=== PATIENT | male | born 1975 | race African-American/Black ===

== ENCOUNTER 2019-03-23 08:15 | Emergency (ER) | payer BC, OTHER ==
[~2019-03-23] VITALS: Ht 172.7 cm; Wt 75.7 kg
--- NOTE | 2019-03-23 08:30 | NUR ---
Patient ambulated with stable gait. Speech is clear, speaks in complete sentences. No acute neuro deficits. A/Ox3. Patient came for c/o cp / epigastric pain x1 wk. Respiratory even and unlabored, no cough, SOB, no use of accessory muscles. Reports chest pain non-radiating and localized in the sternal aspect, tingling sensation in upper extremities, all pulses palpable, cap refill <3 seconds. Denies any GI/ symptoms, no n/v/d or abd pain. Patient in bed at lowest position, sr upx2, call light within reach. Fall precautions implemented per protocol.
--- NOTE | 2019-03-23 08:33 | NUR ---
ER MD at bedside, evaluating patient.
[2019-03-23] MEDS ORDERED: MAG HYDROX/AL HYDROX/SIMETH 30 ML LIQUID UDC PO ONE (08:45)
[2019-03-23] MEDS ORDERED: LIDOCAINE VISCUS 2% 15 ML UDC MM ONE (08:45)
[2019-03-23] MEDS ORDERED: LIDOCAINE VISCUS 2% 15 ML UDC ONE (08:47)
[2019-03-23] MEDS ORDERED: MAG HYDROX/AL HYDROX/SIMETH 30 ML LIQUID UDC ONE (08:48)
[2019-03-23 08:54] LABS: BASOPHILS % (AUTO) 0.6 % (0.0-2.0); HEMOGLOBIN 13.7 g/dL (12.5-16.3); LYMPHOCYTES # (AUTO) 1.7 K/uL (20.0-40.0); LYMPHOCYTES % (AUTO) 36.5 % (20.5-51.5); MEAN CORPUSCULAR HGB CONC 33 g/dL (32.5-36.3); MEAN CORPUSCULAR VOLUME 79.6 fL (73.0-96.2); MONOCYTES # (AUTO) 0.3 K/uL (2.0-10.0); MONOCYTES % (AUTO) 6.6 % (0.0-11.0); NEUTROPHILS # (AUTO) 2.6 K/uL (1.8-8.9); NEUTROPHILS % (AUTO) 55.3 % (38.5-71.5); PLATELET COUNT (AUTO) 199 K/uL (152-348); RED BLOOD CELL COUNT(AUTO) 5.28 MIL/uL (4.06-5.63); WHITE BLOOD COUNT (AUTO) 4.7 K/uL (3.6-10.2)
--- NOTE | 2019-03-23 09:02 | NUR ---
pt unable to tolarate all of medication.ER MD aware.
[2019-03-23 09:07] LABS: BILIRUBIN,DIRECT 0.1 mg/dL (0.0-0.2); BILIRUBIN,TOTAL 0.6 mg/dL (0.2-1.0); CREATININE 1.5 mg/dL (0.6-1.3); POTASSIUM 3.4 mmol/L (3.5-5.1); TOTAL PROTEIN, SERUM 7.8 g/dL (6.4-8.2)
--- NOTE | 2019-03-23 09:29 | NUR ---
Patient discharged to home in stable conditon, steady gait.Written and verbal after care instructions given . Patient verbalizes understanding of instructions.
[2019-03-23 09:51] VITALS: BP 125/96
== END 2019-03-23 09:29 | disposition home or self-care (01) ==
LOC: ER 08:15
DX: K21.9 Gastro-esophageal reflux disease without esophagitis (principal); R10.13 Epigastric pain; Z88.0 Allergy status to penicillin
CPT/HCPCS: 36415; 70030-TC; 71045; 83690; 85025; 93005; A4663

== ENCOUNTER 2019-04-26 02:28 | Emergency (ER) | payer OTHER ==
[~2019-04-26] VITALS: Ht 172.7 cm; Wt 74.8 kg
[2019-04-26] MEDS ORDERED: HYDROCODONE/APAP 10-325 MG TABLET ONE (02:50)
[2019-04-26 02:58] VITALS: BP 122/78
--- NOTE | 2019-04-26 02:58 | NUR ---
Patient discharged to home in stable conditon. Written and verbal after care instructions given. Patient verbalizes understanding of instructions.
[2019-04-26] MEDS ORDERED: HYDROCODONE/APAP 10-325 MG TABLET PO ONE (03:00)
== END 2019-04-26 03:00 | disposition home or self-care (01) ==
LOC: ER 02:31
DX: S20.211A Contusion of right front wall of thorax, initial encounter (principal); K21.9 Gastro-esophageal reflux disease without esophagitis; Z88.0 Allergy status to penicillin; X58.XXXA Exposure to other specified factors, initial encounter; Y93.89 Activity, other specified; Y92.89 Other specified places as the place of occurrence of the external cause; Y99.8 Other external cause status
CPT/HCPCS: A4663